=== PATIENT | female | born 1950 | race Caucasian/White ===

== ENCOUNTER 2016-07-27 09:00 | Observation (INO) | payer MEDICARE, BC ==
[2016-07-27] VITALS (8 sets, daily range): BP systolic 128–147; BP diastolic 59–73
[~2016-07-27] VITALS: Ht 175.3 cm; Wt 70.3 kg
[~2016-07-27 09:00] MED LIST: CEFAZOLIN 1GM IVPB FOR OMNI 50 ML IV PRN; FENTANYL PF 100 MCG/2 ML VIAL. IV PRN; HYDROMORPHONE 2 MG/ML VIAL. IV PRN; IV RINGERS,LACTATED 1000ML 1,000 ML IV SCH; LIDOCAINE 1% 1 ML SYRINGE. ID PRN; MORPHINE SULFATE 2 MG/ML DISP.SYRIN. IV PRN; ONDANSETRON PF 4 MG/2 ML VIAL. IV PRN; PROCHLORPERAZINE 10 MG/2 ML VIAL. IV PRN
[2016-07-27 10:03] LABS: BASO # 0.1 x10^3/uL (0.0-0.2); BASO % 2 % (0-3); EOS % 2 % (0-3); HEMATOCRIT 42.5 % (36.0-47.0); HEMOGLOBIN 14.2 g/dL (12.0-15.5); LYMPH # 1.8 x10^3/uL (1.0-4.8); LYMPH % 29 % (24-48); MEAN CORPUSCULAR HEMOGLOBIN 30 pg (25-35); MEAN CORPUSCULAR HGB CONC 33 g/dL (31-37); MEAN CORPUSCULAR VOLUME 89 fL (79-100); MONO % 9 % (0-9); NEUT % 58 % (31-73); PLATELET COUNT 339 x10^3/uL (140-400); RED BLOOD COUNT 4.78 x10^6/uL (3.50-5.40); RED CELL DISTRIBUTION WIDTH 13.7 % (11.5-14.5); WHITE BLOOD COUNT 6.2 x10^3/uL (4.0-11.0)
--- NOTE | 2016-07-27 10:04 | EKG ---
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
[2016-07-27] MEDS ORDERED: KETOROLAC 30 MG/ML INJ FOR OR. INJ ONE (11:28)
[2016-07-27] MEDS ORDERED: FAMOTIDINE 20 MG/2 ML VIAL ONE (11:28)
[2016-07-27] MEDS ORDERED: LIDOCAINE 2% 100 MG/5 ML SYRINGE. ONE (11:28)
[2016-07-27] MEDS ORDERED: ONDANSETRON PF 4 MG/2 ML VIAL. ONE (11:28)
[2016-07-27] MEDS ORDERED: DEXAMETHASONE SOD PHOS 20 MG/5 ML VIAL. ONE (11:28)
[2016-07-27] MEDS ORDERED: PROPOFOL 20 ML IV ONE (11:28)
[2016-07-27] MEDS ORDERED: ROCURONIUM 50 MG/5 ML VIAL. ONE (11:30)
[2016-07-27] MEDS ORDERED: MIDAZOLAM HCL/PF 2 MG/2 ML VIAL. ONE (11:30)
[2016-07-27] MEDS ORDERED: FENTANYL PF 100 MCG/2 ML VIAL. ONE ×2 (11:30→12:36)
[2016-07-27] MEDS ORDERED: BUPIVACAINE-EPI 0.25%-1:200000 MPF 30 ML VIAL. ONE (11:49)
[2016-07-27] MEDS ORDERED: ACETAMINOPHEN INTRAVENOUS 100 ML IV ONE (11:52)
[2016-07-27] MEDS ORDERED: EPHEDRINE PF IN SALINE 50 MG/5 ML DISP.SYRIN. IV ONE (12:16)
[2016-07-27] MEDS ORDERED: hydrALAZINE 20 MG/ML VIAL. ONE (12:49)
[2016-07-27] MEDS ORDERED: GLYCOPYRROLATE 1 MG/5 ML VIAL. ONE (12:58)
[2016-07-27] MEDS ORDERED: NEOSTIGMINE METHYLSULFATE 5 MG/5 ML SYRINGE. ONE (12:58)
--- NOTE | 2016-07-27 13:21 | PDOC ---
BRIEF OPERATIVE NOTE Pre-Op Diagnosis Post Menopausal Bleeding Post-Op Diagnosis Same + REY Cyst Procedure Performed TLH & BSO Surgeon Dr. Child Chiropractic Physician Gayle Anesthesia Type: General Blood Loss 25 ml Specimens Obtained cervix, uterus, andrew. fallopian tubes and ovaries Findings enlarged uterus, nml fallopian tubes andrew., nml ROV, REY cyst 5 cm size Complications none Additional Remarks pt. stable. GAB CHILD Jr, MD Jul 27, 2016 13:21
[2016-07-27] MEDS ORDERED: CALCIUM CARBONATE 500 MG TAB.CHEW PO PRN (13:30)
[2016-07-27] MEDS ORDERED: DEXTROSE 50% 25 GM / 50ML DISP.SYRIN. IV PRN (13:30)
[2016-07-27] MEDS ORDERED: PROCHLORPERAZINE 10 MG/2 ML VIAL. IV PRN (13:30)
[2016-07-27] MEDS ORDERED: DIPHENHYDRAMINE 50 MG/ML VIAL. IV PRN (13:30)
[2016-07-27] MEDS ORDERED: KETOROLAC TROMETHAMINE 30 MG/ML INJ. IV PRN (13:30)
[2016-07-27] MEDS ORDERED: ONDANSETRON PF 4 MG/2 ML VIAL. IV PRN (13:30)
[2016-07-27] MEDS ORDERED: DIPHENHYDRAMINE HCL 25 MG CAPSULE PO PRN (13:30)
[2016-07-27] MEDS ORDERED: OXYCODONE/APAP 5/325 TABLET. PO PRN (13:30)
[2016-07-27] MEDS ORDERED: SIMETHICONE 80 MG TAB.CHEW PO PRN (13:30)
[2016-07-27] MEDS ORDERED: 0.9 % SODIUM CHLORIDE 10 ML DISP.SYRIN. IV PRN (13:30)
[2016-07-27] MEDS ORDERED: ZOLPIDEM 5 MG TABLET. PO PRN (13:30)
[2016-07-27] MEDS ORDERED: DESFLURANE 61 TO 120 MINUTES IH ONE (13:33)
[2016-07-27] MEDS ORDERED: ESTROGENS, CONJ VAGINAL CREAM 30GM TUBE. ONE (13:41)
[2016-07-27] MEDS: GABAPENTIN 300 MG CAPSULE. PO SCH ×2 (14:00→22:00)
--- NOTE | 2016-07-27 17:10 | OP ---
DATE OF SURGERY: 07/27/2016 PREOPERATIVE DIAGNOSIS: Postmenopausal bleeding. POSTOPERATIVE DIAGNOSES: Postmenopausal bleeding plus left ovarian cyst 5 cm size. SURGEON: Gab Child MD PROCEDURE: TLH-BSO via da Tom robot. SECURITY SCREENER: ____ ANESTHESIA: GETA. ESTIMATED BLOOD LOSS: 25 mL. COMPLICATIONS: None. FINDINGS: Enlarged uterus, normal fallopian tubes bilaterally, normal right ovary, left ovarian cyst of 5 cm size. SUMMARY: This is a 66-year-old female with postmenopausal bleeding. The patient required hysterectomy. She was counseled on the risks, benefits and expectations of TLH-BSO via da Tom robot and voiced clear understanding to proceed. DESCRIPTION OF PROCEDURE: The patient was taken to surgery suite and placed in dorsal lithotomy position. She was prepped with Betadine solution for vaginal prep and ChloraPrep for abdominal prep. After adequate anesthesia, bivalve speculum was placed vaginally. Anterior lip of the cervix was grasped with a single-toothed tenaculum. The ARELI uterine manipulator was then placed. The single-toothed tenaculum and bivalve speculum removed. Attention was placed on abdomen. Small transverse skin incision was made just below the umbilicus with a scalpel. The Veress needle was then placed through the infraumbilical incision site. The abdomen was allowed to insufflate up to 1-1/2 liters of CO2 gas. The Veress needle was then removed. The 8-mm trocar was placed. The camera was positioned. The uterus appeared enlarged. Bilateral fallopian tubes appeared normal. Right ovary appeared normal. The left ovary demonstrated 5 cm simple cyst. Incision was made in the right and left lower quadrant with a scalpel in which a 8-mm trocar were placed. An accessory port was placed in the left upper quadrant in which a 5-mm trocar was placed. The da Tom robot was then docked in normal fashion. I then proceeded to the console. With the aid of the vessel sealer and the bipolar cautery, the right round ligament was coagulated and dissected. The right infundibulopelvic ligament was coagulated and dissected. Right broad ligament and right uterine artery was coagulated and dissected. Bladder flap was partially created using blunt dissection along with the vessel sealer. Same process took place with the left adnexa along with the completion of the bladder flap. The ureters were visualized bilaterally and functioning well, colpotomy was performed with the spatula and monopolar cautery. The uterus, cervix, bilateral fallopian tubes and ovaries were then removed in their entirety. The vaginal cuff was reapproximated using V-Loc suture in a running fashion. Suction irrigation was utilized to verify good hemostasis. Small amount of normal saline was left in posterior cul-de-sac. The trocars were then removed under direct visualization. The abdomen was allowed to deflate as much as possible along with mechanical manipulation. The 4 skin incisions were reapproximated using 4-0 Vicryl suture in subcuticular manner. A 0.25% Marcaine with epinephrine was injected at each incision site. A Premarin soaked vaginal packing was placed vaginally. The patient tolerated the procedure well and was taken to recovery room in stable condition. Sponge and needle counts were correct x 3. GAB CHILD MD DR: TAYLOR/simone JOB#: [id number] / [id number]
[2016-07-28 06:23] VITALS: BP 147/71
[2016-07-28 07:29] LABS: BASO # 0.1 x10^3/uL (0.0-0.2); BASO % 1 % (0-3); EOS % 0 % (0-3); HEMATOCRIT 39.3 % (36.0-47.0); HEMOGLOBIN 12.6 g/dL (12.0-15.5); LYMPH # 1.3 x10^3/uL (1.0-4.8); LYMPH % 11 % (24-48); MEAN CORPUSCULAR HEMOGLOBIN 30 pg (25-35); MEAN CORPUSCULAR HGB CONC 32 g/dL (31-37); MEAN CORPUSCULAR VOLUME 92 fL (79-100); MONO % 7 % (0-9); NEUT % 82 % (31-73); PLATELET COUNT 309 x10^3/uL (140-400); RED BLOOD COUNT 4.27 x10^6/uL (3.50-5.40); RED CELL DISTRIBUTION WIDTH 13.9 % (11.5-14.5); WHITE BLOOD COUNT 12.4 x10^3/uL (4.0-11.0)
--- NOTE | 2016-07-28 13:30 | PDOC ---
SURGICAL PROGRESS NOTE Subjective Pt. feeling well. Pain controlled. Pt. tolerating regular diet, ambulating and voiding without difficulty. Vital Signs Vital Signs Date Time Temp Pulse Resp B/P Pulse Ox O2 Delivery O2 Flow Rate FiO2 07/28/16 06:23 98.1 71 18 147/71 99 Room Air 96.0 98.1 I&O Intake and Output 07/28/16 07:00 Intake Total 2400 ml Output Total 1975 ml Balance 425 ml Intake Oral 1400 ml IV Total 1000 ml Output Urine Total 1975 ml PATIENT HAS A OLSEN: No General: Alert, Oriented X3, Cooperative HEENT: Atraumatic Lungs: Clear to auscultation Heart: Regular rate Abdomen: Normal bowel sounds, Soft, No tenderness, No masses Extremities: No edema Neuro: Normal gait Psych/Mental Status: Mental status NL Labs Laboratory Tests Test 07/27/16 09:40 07/28/16 06:45 White Blood Count 6.2x10^3/uL (4.0-11.0) 12.4x10^3/uL (4.0-11.0) Red Blood Count 4.78x10^6/uL (3.50-5.40) 4.27x10^6/uL (3.50-5.40) Hemoglobin 14.2g/dL (12.0-15.5) 12.6g/dL (12.0-15.5) Hematocrit 42.5% (36.0-47.0) 39.3% (36.0-47.0) Mean Corpuscular Volume 89fL (79-100) 92fL (79-100) Mean Corpuscular Hemoglobin 30pg (25-35) 30pg (25-35) Mean Corpuscular Hemoglobin Concent 33g/dL (31-37) 32g/dL (31-37) Red Cell Distribution Width 13.7% (11.5-14.5) 13.9% (11.5-14.5) Platelet Count 339x10^3/uL (140-400) 309x10^3/uL (140-400) Neutrophils (%) (Auto) 58% (31-73) 82% (31-73) Lymphocytes (%) (Auto) 29% (24-48) 11% (24-48) Monocytes (%) (Auto) 9% (0-9) 7% (0-9) Eosinophils (%) (Auto) 2% (0-3) 0% (0-3) Basophils (%) (Auto) 2% (0-3) 1% (0-3) Neutrophils # (Auto) 3.6x10^3uL (1.8-7.7) 10.1x10^3uL (1.8-7.7) Lymphocytes # (Auto) 1.8x10^3/uL (1.0-4.8) 1.3x10^3/uL (1.0-4.8) Monocytes # (Auto) 0.5x10^3/uL (0.0-1.1) 0.9x10^3/uL (0.0-1.1) Eosinophils # (Auto) 0.1x10^3/uL (0.0-0.7) 0.0x10^3/uL (0.0-0.7) Basophils # (Auto) 0.1x10^3/uL (0.0-0.2) 0.1x10^3/uL (0.0-0.2) Laboratory Tests Test 07/28/16 06:45 White Blood Count 12.4x10^3/uL (4.0-11.0) Red Blood Count 4.27x10^6/uL (3.50-5.40) Hemoglobin 12.6g/dL (12.0-15.5) Hematocrit 39.3% (36.0-47.0) Mean Corpuscular Volume 92fL (79-100) Mean Corpuscular Hemoglobin 30pg (25-35) Mean Corpuscular Hemoglobin Concent 32g/dL (31-37) Red Cell Distribution Width 13.9% (11.5-14.5) Platelet Count 309x10^3/uL (140-400) Neutrophils (%) (Auto) 82% (31-73) Lymphocytes (%) (Auto) 11% (24-48) Monocytes (%) (Auto) 7% (0-9) Eosinophils (%) (Auto) 0% (0-3) Basophils (%) (Auto) 1% (0-3) Neutrophils # (Auto) 10.1x10^3uL (1.8-7.7) Lymphocytes # (Auto) 1.3x10^3/uL (1.0-4.8) Monocytes # (Auto) 0.9x10^3/uL (0.0-1.1) Eosinophils # (Auto) 0.0x10^3/uL (0.0-0.7) Basophils # (Auto) 0.1x10^3/uL (0.0-0.2) Problem List Problems Medical Problems: (1) Ovarian neoplasm Status: Acute (2) Post-menopausal bleeding Status: Acute Assessment/Plan POD#1 s/p TLH & BSO P: D/c home. Problems: GAB ROSE Jr, MD Jul 28, 2016 13:30
--- NOTE | 2016-07-28 13:31 | DISCH ---
DISCHARGE INSTRUCTIONS Condition on Discharge Condition on Discharge: Stable Activity After Discharge Activity Instructions for Disc: Activity as tolerated Lifting Instructions after Dis: No heavy lifting Driving Instructions after Dis: No driving for 2 weeks Diet after Discharge Diet after Discharge: Regular Contacting the DRCarmelina after DC Call your doctor for: Concerns you may have Follow-Up Follow up with: Dr. Child in 2 weeks. GAB CHILD Jr, MD Jul 28, 2016 13:31
[2016-07-28] MEDS ORDERED: DOCU-27 PO (13:33)
[2016-07-28] MEDS ORDERED: IBUP-1060 PO (13:33)
[2016-07-28] MEDS ORDERED: OXYC-323 PO (13:33)
[2016-07-28 14:15] VITALS: BP 140/75
--- NOTE | 2016-07-31 13:32 | PATHOLOGY ---
PATHOLOGY REPORT * * * * * * * * FINAL DIAGNOSIS: Uterus and bilateral fallopian tubes and ovaries, robotic laparoscopic hysterectomy with bilateral salpingo-oophorectomy: - Endometrial polyp. - Chronic cervicitis with focal squamous metaplasia. - Disordered proliferative endometrium. - Adenomyosis, uterine corpus, subbasal, focal. - Cystic [place] rests and paratubal cysts of bilateral fallopian tubes. - Small serous cystadenofibroma of right ovary, measuring 1.9 cm. 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 COMMENT: There is no evidence of malignancy. (JPM:; d/t: 07/31/16) REPORT ELECTRONICALLY SIGNED BY: Gamaliel Torres M.D. DATE/TIME: 07/31/2016 13:31 * * * * * * * * GROSS PATHOLOGY: The specimen is received in formalin, labeled "Pauline Camacho - uterus, cervix, bilateral tubes, and ovaries." Received is a 96 g uterus with attached cervix and attached bilateral adnexa. The uterus measures 9.3 cm from fundus to cervix, 7.2 cm from cornu to cornu, and 3.5 cm from anterior to posterior. The specimen is oriented using the peritoneal reflection and adnexal placement. The uterine serosa is purple-pink, wrinkled, and displays adhesions. The 3.5 x 3.0 cm cervix displays a 1.3 cm slit-like os. The ectocervical mucosa is pink-lewis and wrinkled. The pink-lewis and corrugated endocervical canal measures 3.5 cm in length and 1.0 cm in average width. The pink-lewis, hemorrhagic, triangular, and shaggy endometrial cavity measures 5.2 cm in length and 2.2 cm from cornu to cornu. The anterior endometrial cavity displays a 2.5 x 2.0 cm endometrial polyp. The polyp is removed from the endometrial cavity and its resection margin is inked black. The pink-lewis endometrium measures 0.1 cm in thickness. The pink-lewis myometrium measures 2.2 cm in maximum thickness. Sectioning reveals two possible small intramural fibroids measuring 0.2 and 0.3 cm in greatest dimension. The 11 g right adnexa consists of a 6.2 cm in length fimbriated fallopian tube with a 0.5 cm diameter attached to a 3.5 x 2.5 x 1.8 cm cystic ovary. The external surface of the fallopian tube is purple-pink, wrinkled, and display several paratubal cysts ranging from 0.1-0.2 cm in greatest dimension. Sectioning reveals a pinpoint lumen. The external surface of the ovary is yellow-lewis and cerebriform. Sectioning reveals multiple thin-walled and uniloculated cysts filled with clear serous fluid and ranging from 0.2-1.7 cm in greatest dimension. The internal lining of the cyst is lewis-pink and smooth. No papillary excrescences are grossly identified. The remaining ovarian stroma is lewis and displays few white-lewis corpora albicantia. The 69 g left adnexa consists of a 7.0 cm in length fimbriated fallopian tube with a 0.7 cm diameter attached/adhesed to a 7.3 x 5.2 x 4.5 cm cystic ovary. The external surface of the fallopian tube is purple-pink, wrinkled, and display several paratubal cysts ranging from 0.2-1.0 cm in greatest dimension. Sectioning reveals a pinpoint lumen. The external surface of the ovary is yellow-lewis and cerebriform. Sectioning reveals several thin-walled and uniloculated cysts filled with clear serous fluid and ranging from 0.3-4.5 cm in greatest dimension. The internal lining of the cysts are lewis-pink and smooth. No papillary excrescences are grossly identified. The remaining ovarian stroma is lewis and grossly unremarkable. Mechanical Shovel Operator sections are submitted as follows: A1 anterior cervix A2 posterior cervix A3-A4 endometrial polyp, entirely submitted A5 full-thickness section of anterior endomyometrium and serosa A6 full-thickness section of posterior endomyometrium and serosa A7 fibroids A8-A10 right adnexa to include paratubal and ovarian cysts A11-A12 left adnexa to include paratubal and ovarian cysts (TTL; 07/28/2016) INITIAL CPT CODE(S): A; 70986 Professional services performed by [facility] at [address] [address] Technical services performed by [facility] at [address] [place] [address], [address], [place] [address]. Jackie Lockwood [phone] Fax SPECIMEN(S) RECEIVED: A.Uterus, cervix, bilateral tubes and ovaries CLINICAL HISTORY: Post menopausal bleeding PATIENT: PAULINE CAMACHO /AGE: 2 1950 (Age: 66) PATIENT #: [id number] ALT CASE #: SPECIMEN COLLECTION DATE: 07/27/2016 SPECIMEN RECEIVED DATE: 07/27/2016 [facility] - [address] [place] [address] - PHONE: [phone] * * * END OF REPORT * * *
== END 2016-07-28 15:07 | disposition home or self-care (01) ==
LOC: SURG 09:00 → 3 NORTH 13:45
PROVIDERS: ADMIT Obstetrics & Gynecology; ATTEND Obstetrics & Gynecology
DX: N95.0 Postmenopausal bleeding (principal); N83.202 Unspecified ovarian cyst, left side
CPT/HCPCS: 36415; 58571; 85027; 86850; 86900; 86901; 93005; 96374; A4215; G0378; G0379; J0131; J0360; J0690; J1100; J1885; J2250; J2704; J2710; J3010; J3490; J7030; J7120; S0028; 88307; J2405